=== PATIENT | female | born 1995 | race Hispanic/Latino ===

== ENCOUNTER 2016-09-05 15:28 | Inpatient (IN) | payer OTHER ==
[~2016-09-05] VITALS: Ht 157.5 cm; Wt 74.8 kg
[2016-09-05] MEDS ORDERED: PROAIR HFA8.5 GM INH (16:08)
[2016-09-05] MEDS ORDERED: XANAX2 M1 PO (16:09)
[2016-09-05] MEDS ORDERED: HYDROXYZINE PAM50 M1 PO (16:09)
[2016-09-05] MEDS ORDERED: CIMETIDINE400 M1 PO (16:10)
[2016-09-05] MEDS ORDERED: HYDROCORTISO453.6 G2 TOP (16:10)
--- NOTE | 2016-09-05 16:40 | ED CARDIAC/CP/PALPITATIONS ---
History of Present Illness General Chief Complaint: Chest Pain Stated Complaint: SOB,CHEST PAIN Source: patient Exam Limitations: no limitations Vital Signs & Intake/Output Vital Signs & Intake/Output Vital Signs Date Time Temp Pulse Resp B/P Pulse O2 O2 Flow FiO2 Ox Delivery Rate 09/05 2019 99.5 101 16 115/66 97 Nasal 2.0L Cannula 09/05 2000 99.7 90 20 110/61 97 Nasal 2.0L Cannula 09/05 1754 99.6 100 18 132/72 100 Nasal 2.0L Cannula 09/05 1655 Nasal 2.0L Cannula 09/05 1630 118 18 129/63 97 Room Air 09/05 1540 97.1 120 16 118/74 96 Room Air Allergies Coded Allergies: animal dander (HIVES, MAY TRIGGER ASTHMA 09/05/16) Reconcile Medications Albuterol Sulfate (Proair Hfa) 90 MCG HFA.AER.AD 2 PUF INH Q4-6 PRN PRN ASTHMA (Reported) Alprazolam (Xanax) 2 MG TABLET 1 TAB PO PRN ANXIETY (Reported) Aripiprazole (Abilify) 5 MG TABLET 1 TAB PO DAILY MENTAL HEALTH (Reported) Cimetidine 400 MG TABLET 1 TAB PO DAILY HIVES (Reported) Hydrocortisone 2.5 % CREAM..G. 1 MARY JO TOP AD PRN HIVES (Reported) apply to affected area(s) Hydroxyzine Pamoate 50 MG CAPSULE 1-2 CAP PO TID PRN HIVES (Reported) Triage Note: PT COMPLAINS OF SUDDEN ONSET OF L SIDE CP THAT HAS BEEN CONSTANT AND INCREASING IN INTENSITY THAT STARTED AT 1345, STATES THAT IT IS A CRUSHING FEELING AND THAT SHE CAN'T TAKE A DEEP BREATH, O2 SAT 96 % ON RA.SINUS TACH ON EKG Triage Nurses Notes Reviewed? yes : No Patient currently breastfeeds: No HPI: 20-year-old female with sudden onset of anterior left-sided sternal chest pain which is sharp in nature, started at 1:30 this afternoon. She has history of mild asthma and she smokes occasionally, a few cigarettes every day. Pain is Moderate to severe worse with taking a deep breath and with palpation of the area. Over the last few days she has had cough congestion sputum tactile fever. She denies any calf pain or swelling no leg pain no edema, no DVT risk factors she is not on control, no family history of blood cultures. There has been no treatment thus far. Symptoms are moderate. She feels mildly short of breath. No history of same. (JANICE LONG) Past History Travel History Traveled to [place] past 21 day No Medical History Any Pertinent Medical History? see below for history Neurological: NONE EENT: NONE Cardiovascular: hypertension Respiratory: asthma Gastrointestinal: NONE Hepatic: NONE Renal: NONE Musculoskeletal: NONE Psychiatric: anxiety Blood Disorders: NONE Cancer(s): NONE Surgical History Surgical History: none Psychosocial History What is your primary language Zimbabwean Tobacco Use: Current Daily Use Daily Tobacco Use Amount/Type: => 5 Cigarettes daily ETOH Use: denies use Illicit Drug Use: denies illicit drug use Family History Hx Contributory? No (JANICE LONG) Review of Systems Review of Systems Constitutional: Reports: see HPI. EENTM: Reports: no symptoms. Respiratory: Reports: see HPI. Cardiovascular: Reports: see HPI. GI: Reports: no symptoms. Genitourinary: Reports: no symptoms. Musculoskeletal: Reports: no symptoms. Skin: Reports: no symptoms. Neurological/Psychological: Reports: no symptoms. Hematologic/Endocrine: Reports: no symptoms. Immunologic/Allergic: Reports: no symptoms. All Other Systems: Reviewed and Negative (JANICE LONG) Physical Exam Physical Exam General Appearance: well developed/nourished Cardiovascular: tachycardia Comments: Well-developed well-nourished person in no acute distress HEENT: Normal EENT exam, extraocular motion intact, no nystagmus. Pupils equally round and reactive to light. Nose is atraumatic. External auditory canal and Tympanic membranes clear. Pharynx normal. No swelling or edema. Neck: Supple, no lymphadenopathy, normal range of motion without pain or tenderness Back: Nontender, no CVA tenderness. Full range of motion Cardiovascular: Tachycardic with a regular rhythm Respiratory: Severe point tenderness to the anterior left side of the sternal region. No respiratory distress. Mild tachypnea, mild rhonchi noted bilateral lower lungs Abdomen: Soft, nontender nondistended, no appreciable organomegaly. Normal bowel sounds. No ascites Extremity: No edema, no calf tenderness to palpation, normal and equal pulses. Neuro: Alert oriented x3, motor sensory normal, cranial nerves II through XII grossly intact. Skin: No appreciable rash on exposed skin, skin is warm and dry. Psych: Mood and affect is normal, memory and judgment is normal. Core Measures ACS in differential dx? Yes Severe Sepsis Present: No Septic Shock Present: No (TEQUILA SILVERMAN,JANICE) Progress Differential Diagnosis: AMI, aortic dissection, atrial fibrillation, cholecystitis, CHF/pulm edema, costochondritis, hyperkalemia, hypovolemia, hyperthyroid, hyperventilation, intracranial hemorrhage, musculoskeletal pain, myocarditis, pancreatitis, pericarditis, pneumonia, pneumothorax, PSVT, pulmonary embolism, PUD/GERD, PVCs/PACs, respiratory failure, rib fracture, sepsis, unstable angina, V-fib/V-Tach, WPW syndrome Plan of Care: Orders Procedure Date/time Status Regular Diet 09/06 B Active Saline Lock 09/05 2140 Active Misc Message 09/05 2140 Active ED Holding Orders 09/05 2140 Active Vital Signs 09/05 2140 Active Activity/Ambulation 09/05 2140 Active Code Status 09/05 2140 Active Admit to inpatient 09/05 2139 Active Patient Data 09/05 213 Active Intake & Output 09/05 1657 Active Saline Lock 09/05 1633 Active Telemetry/Sports Broadcaster 09/05 1633 Active TROPONIN LEVEL 09/05 1633 Complete HUMAN BETA HCG SCREEN 09/05 1633 Complete COMPREHENSIVE METABOLIC PANEL 09/05 1633 Complete CBC WITHOUT DIFFERENTIAL 09/05 1633 Complete B-TYPE NATRIURETIC PEP (BNP) 09/05 1633 Complete EKG 09/05 1530 Active Laboratory Tests 09/05/16 1725: Anion Gap 14, Estimated GFR > 60, BUN/Creatinine Ratio 11.3, Glucose 96, Calcium 9.5, Total Bilirubin 0.6, AST 21, ALT 30, Alkaline Phosphatase 90, Troponin I < 0.01, Lwr-Z-Nkojfqzcear Pept 30.6, Total Protein 7.6, Albumin 4.3, Globulin 3.3, Albumin/Globulin Ratio 1.3, Total Beta HCG NEGATIVE, CBC w Diff NO MAN DIFF REQ, RBC 4.28, MCV 90.9, MCH 31.0, RDW 13.4, MPV 9.3, Gran % 86.9 H, Lymphocytes % 6.1 L, Monocytes % 5.7, Eosinophils % 1.0, Basophils % 0.3, Absolute Granulocytes 11.8 H, Absolute Lymphocytes 0.8 L, Absolute Monocytes 0.8 H, Absolute Eosinophils 0.1, Absolute Basophils 0, PUBS MCHC 34.1 Diagnostic Imaging: Viewed by Me: Radiology Read, CT Scan. Discussed w/RAD: Radiology Read, CT Scan. Radiology Impression: PATIENT: CLIFF DYSON PRESENT AGE: 20 PATIENT ACCOUNT NO: [id number] : 93 LOCATION: [facility] ORDERING PHYSICIAN: JANICE SILVERMAN SERVICE DATE: 09/05/16 EXAM TYPE: CAT - CT CHEST WO IV CONTRAST EXAMINATION: CT CHEST WITHOUT CONTRAST CLINICAL INFORMATION: Pneumomediastinum. Concern for esophageal leak. COMPARISON: None. TECHNIQUE: Multidetector volumetric CT imaging of the chest was done. Axial MIP volume rendering provided. Sagittal and coronal reformatted images were obtained. Oral contrast given. DLP: 185.4 mGy-cm. FINDINGS: LUNGS: Lungs are clear. MEDIASTINUM: There is pneumomediastinum extending into the neck. There is pneumopericardium. There is subcutaneous emphysema in the axillary regions bilateral. Contrast within the esophagus and the stomach. No leak of the esophagus. PLEURA: Small bilateral apical pneumothorax. There is no pleural effusion. No oral contrast leaking into the pleural space. AXILLA: No lymphadenopathy. UPPER ABDOMEN: Unremarkable. OSSEOUS STRUCTURES: Unremarkable. IMPRESSION: 1. Pneumomediastinum. Pneumopericardium. Small bilateral apical pneumothorax. Subcutaneous air in the axillary areas. 2. No esophageal leak. DICTATED BY: WILFRIDO STINSON MD DATE/TIME DICTATED:09/05/162006 CONCRETE BUCKET UNLOADER :ANNIE DATE/TIME TRANSCRIBED:09/05/16 / CXR Impression: PATIENT: CLIFF DYSON PRESENT AGE: 20 PATIENT ACCOUNT NO: [id number] : 93 LOCATION: [facility] ORDERING PHYSICIAN: JANICE SILVERMAN SERVICE DATE: 09/05/16163 EXAM TYPE: RAD - XRY-CHEST XRAY, PA AND LATERAL EXAMINATION: XR CHEST CLINICAL INFORMATION: Chest pain and cough. COMPARISON: None. TECHNIQUE: PA and lateral views of the chest were obtained. FINDINGS: There is pneumomediastinum and a pneumopericardium. Air tracks into the soft tissues of the neck. There is subcutaneous air in the right and left axillary regions. There is a small right apical pneumothorax. There is a small left apical pneumothorax. No infiltrate. No pleural effusion. No pulmonary vascular congestion. Heart size is normal. Cardiac and mediastinal contours are normal. IMPRESSION: Pneumomediastinum. Pneumopericardium. Small bilateral pneumothorax. This critical result was discussed with on , 5:15 PM and it was ascertained that the content and urgency of the report was understood at the time of direct communication. DICTATED BY: WILFRIDO STINSON MD DATE/TIME DICTATED:09/05/161710 CONCRETE BUCKET UNLOADER:ANNIE DATE/TIME TRANSCRIBED:09/05/161710 Initial ED EKG: sinus tachycardia at 120 bpm, abnormal T waves noted in lead 3, aVF, V2 V3 and V4 and V5 no ST segment depression Rhythm Strip: sinus tachycardia Comments: IV Toradol ordered for pain, will check chest x-ray and labs. Patient tachycardic, considered pulmonary embolism. Placed on supplemental oxygen the nasal cannula 2 L Discussed with radiology regarding chest x-ray, discussed with Dr. cabello who reviewed the x-ray as well. Patient reevaluated, she has mild tenderness of the neck without any significant crepitus noted on exam. She is comfortable. She is placed on supplemental oxygen, given IV fluids. Call placed to the thoracic surgeon clinical transformation specialist at 1730. Discussed with Dr. Antonio, recommend CT scan of the chest with oral contrast to evaluate for esophageal leak. CT scan reveals no leak however there is a bilateral small apical pneumothorax, pneumomediastinum again, discussed with Dr. Antonio, no surgical intervention required at this time. Patient treated with IV morphine for pain Discussed with Dr. Rabago who recommends high flow oxygen 100% nonrebreather, admitted overnight to the hospitalist service, repeat chest x-ray admitted night and then again at 6 AM and he will evaluate the patient in the morning and recommends that the admitting team call him immediately if there is any concerns of decompensation. Discussed with Dr. Nobles who agrees with plan. Patient given Percocet for pain (JANICE LONG) Departure Departure Disposition: STILL A PATIENT Condition: Stable Clinical Impression Primary Impression: Pneumomediastinum Secondary Impressions: Abnormal EKG Pneumopericardium Subcutaneous air Qualifiers: Encounter type: initial encounter Qualified Code: T79.7XXA - Traumatic subcutaneous emphysema, initial encounter Tachycardia Referrals: PATIENT HAS NO PRIMARY CARE DR (PCP/Family) Departure Forms: Customer Survey General Discharge Information Admission Note Spoke With: JAKY ALLEN MD Documentation of Exam: Documentation of any treatments & extenuating circumstances including Concerns Regarding Discharge (functional status, medication knowledge or non-compliance, living conditions, etc.) that warrant an admission rather than observation: Patient with a spontaneous pneumoperitoneum, pneumopericardium with air tracking into the neck and subcutaneous tissues of the chest cavity. She requires admission, high flow oxygen , 100 percent overnight on a nonrebreather, repeat serial chest x-rays at midnight and again at 6 AM and evaluation by kennel keeper, telemetry monitoring required. Monitoring her vital signs, oxygen saturation and symptoms and evaluate for worsening pneumothoraces (JANICE LONG) PA/SENIOR APPLICATIONS ANALYST Co-Sign Statement Statement: ED Attending supervision documentation- [X] I saw and evaluated the patient. I have also reviewed all the pertinent lab results and diagnostic results. I agree with the findings and the plan of care as documented in the PA's/SENIOR APPLICATIONS ANALYST's documentation. [X] I have reviewed the ED Record and agree with the PA's/SENIOR APPLICATIONS ANALYST's documentation. [] Additions or exceptions (if any) to the PAs/SENIOR APPLICATIONS ANALYST's note and plan are summarized below: [Patient to be admitted for prior pneumomediastinum. Thoracic surgery has been constant.] (MOIZ KIRAN,KING Cortes) Critical Care Note Critical Care Note Critical Care Time: 30-74 min (35) (JANICE LONG)
--- NOTE | 2016-09-05 17:20 | RADIOLOGY REPORT ---
EXAMINATION: XR CHEST CLINICAL INFORMATION: Chest pain and cough. COMPARISON: None. TECHNIQUE: PA and lateral views of the chest were obtained. FINDINGS: There is pneumomediastinum and a pneumopericardium. Air tracks into the soft tissues of the neck. There is subcutaneous air in the right and left axillary regions. There is a small right apical pneumothorax. There is a small left apical pneumothorax. No infiltrate. No pleural effusion. No pulmonary vascular congestion. Heart size is normal. Cardiac and mediastinal contours are normal. IMPRESSION: Pneumomediastinum. Pneumopericardium. Small bilateral pneumothorax. This critical result was discussed with on 09/05/2016, 5:15 PM and it was ascertained that the content and urgency of the report was understood at the time of direct communication.
[2016-09-05 17:41] LABS: ABSOLUTE BASOPHIL COUNT 0 /CUMM (0.0-0.2); ABSOLUTE EOSINOPHIL COUNT 0.1 /CUMM (0.0-0.7); ABSOLUTE GRANULOCYTE CT 11.8 /CUMM (1.4-6.5); ABSOLUTE LYMPH COUNT 0.8 /CUMM (1.2-3.4); ABSOLUTE MONOCYTE COUNT 0.8 /CUMM (0.10-0.60); BASOPHIL % 0.3 % (0.0-2.0); GRANULOCYTE % 86.9 % (42.2-75.2); HEMATOCRIT 38.9 % (37-47); MEAN CORPUSCULAR HGB CONC 34.1 G/DL (33.0-37.0); MEAN CORPUSCULAR VOLUME 90.9 FL (81.0-99.0); MEAN PLATELET VOLUME 9.3 FL (7.4-10.4); PLATELET COUNT 223 /CUMM (130-400); RBC DISTRIBUTION WIDTH 13.4 % (11.5-14.5); RED BLOOD CELL CT 4.28 /CUMM (4.20-5.40); WHITE BLOOD CELL COUNT 13.6 /CUMM (4.8-10.8)
--- NOTE | 2016-09-05 20:16 | CT SCAN REPORT ---
EXAMINATION: CT CHEST WITHOUT CONTRAST CLINICAL INFORMATION: Pneumomediastinum. Concern for esophageal leak. COMPARISON: None. TECHNIQUE: Multidetector volumetric CT imaging of the chest was done. Axial MIP volume rendering provided. Sagittal and coronal reformatted images were obtained. Oral contrast given. DLP: 185.4 mGy-cm. FINDINGS: LUNGS: Lungs are clear. MEDIASTINUM: There is pneumomediastinum extending into the neck. There is pneumopericardium. There is subcutaneous emphysema in the axillary regions bilateral. Contrast within the esophagus and the stomach. No leak of the esophagus. PLEURA: Small bilateral apical pneumothorax. There is no pleural effusion. No oral contrast leaking into the pleural space. AXILLA: No lymphadenopathy. UPPER ABDOMEN: Unremarkable. OSSEOUS STRUCTURES: Unremarkable. IMPRESSION: 1. Pneumomediastinum. Pneumopericardium. Small bilateral apical pneumothorax. Subcutaneous air in the axillary areas. 2. No esophageal leak.
--- NOTE | 2016-09-05 21:28 | Cons- Thoracic Surgery ---
MIGUEL CORONA 09/05/162113: General Information and HPI Consulting Request Date of Consult: 09/05/16 Requested By: Mann Mahoney PA-C Reason for Consult: pneumomediastinum Source of Information: patient Exam Limitations: no limitations History of Present Illness: Patient is a 20yo F whom presented to the ED with onset of chest pain. Per patient she was at work in her normal state of health at approximately 13:30 when she had sudden pain in her chest as well as what she described as her normal asthma symptoms. After using her albuterol inhaler her breathing improved but her chest pain persisted at which point she decided to come to the ED. Patient states that she was sitting at a desk and not exerting herself. She denies any trauma or blunt force to the chest. She denies recent fever or illnesses though she had an episode of a hot flash yesterday which was short in duration and resolved. At this time patient states that she continues to have some discomfort in her chest and around her neck but breathing is improved. No further c/o. Allergies/Medications Allergies: Coded Allergies: animal dander (HIVES, MAY TRIGGER ASTHMA 09/05/16) Home Med List: Albuterol Sulfate (Proair Hfa) 90 MCG HFA.AER.AD 2 PUF INH Q4-6 PRN PRN ASTHMA (Reported) Alprazolam (Xanax) 2 MG TABLET 1 TAB PO PRN ANXIETY (Reported) Aripiprazole (Abilify) 5 MG TABLET 1 TAB PO DAILY MENTAL HEALTH (Reported) Cimetidine 400 MG TABLET 1 TAB PO DAILY HIVES (Reported) Hydrocortisone 2.5 % CREAM..G. 1 MARY JO TOP AD PRN HIVES (Reported) apply to affected area(s) Hydroxyzine Pamoate 50 MG CAPSULE 1-2 CAP PO TID PRN HIVES (Reported) Current Medications: Current Medications Sig/Holly Start time Last Medication Dose Route Stop Time Status Admin Ketorolac 0 .STK-MED ONE 09/05 1654 DC Tromethamine .ROUTE Ketorolac 30 MG ONCE ONE 09/05 1645 DC 09/05 Tromethamine IV 09/056 1735 Morphine Sulfate 0 .STK-MED ONE 09/05 1918 DC .ROUTE Morphine Sulfate 2 MG ONCE ONE 09/05 1914 DC 09/05 IV 01/03 1916 1921 Oxycodone/ 0 .STK-MED ONE 09/05 2021 DC Acetaminophen PO Oxycodone/ 1 TAB ONCE ONE 09/05 2014 DC 09/05 Acetaminophen PO 09/05 Sodium Chloride 1,000 ML BOLUS ONE 09/05 1645 DC 09/05 IV 09/05 1744 1735 Past History Medical History Neurological: NONE EENT: NONE Cardiovascular: hypertension Respiratory: asthma Gastrointestinal: NONE Hepatic: NONE Renal: NONE Musculoskeletal: NONE Psychiatric: anxiety Blood Disorders: NONE Cancer(s): NONE Surgical History Pertinent Surgical History: 1 Psychosocial History ETOH Use: denies use Illicit Drug Use: denies illicit drug use Review of Systems Review of Systems Constitutional: Denies: chills, fever, malaise. EENTM: Denies: blurred vision, visual changes. Cardiovascular: Reports: see HPI. Denies: palpitations. Respiratory: Reports: see HPI. GI: Denies: abdominal pain, constipation, diarrhea. Genitourinary: Denies: dysuria, frequency. Musculoskeletal: Denies: back pain, joint pain, muscle pain. Skin: Denies: change in skin color. All Other Systems: Reviewed and Negative Exam & Diagnostic Data Vital Signs and I&O Vital Signs Date Time Temp Pulse Resp B/P Pulse O2 O2 Flow FiO2 Ox Delivery Rate 09/05 2019 99.5 101 16 115/66 97 Nasal 2.0L Cannula 09/05 2000 99.7 90 20 110/61 97 Nasal 2.0L Cannula 09/05 1754 99.6 100 18 132/72 100 Nasal 2.0L Cannula 09/05 1655 Nasal 2.0L Cannula 09/05 1630 118 18 129/63 97 Room Air 09/05 1540 97.1 120 16 118/74 96 Room Air Intake & Output 09/05 1600 09/05 0800 09/05 0000 09/04 1600 09/04 0800 09/04 0000 Intake Total Output Total Balance Patient 165 lb Weight Physical Exam General Appearance: well developed/nourished, no apparent distress, alert, awake Head: atraumatic, normal appearance Eyes: Bilateral: normal appearance, EOMI. Ears, Nose, Throat: hearing grossly normal, moist mucus membranes Neck: full range of motion, trachea mid line, no midline tenderness, tenderness and crepitus b/l lateral sides of neck Respiratory: normal breath sounds, no respiratory distress Cardiovascular: regular rate/rhythm, normal peripheral pulses Peripheral Pulses: 2+ radial (R), 2+ radial (L) Extremities: normal inspection Skin: intact, normal color, warm/dry Last 24 Hours of Labs: Laboratory Tests 09/05 1725 Chemistry Sodium (137 - 145 mmol/L) 138 Potassium (3.5 - 5.1 mmol/L) 4.0 Chloride (98 - 107 mmol/L) 99 Carbon Dioxide (22 - 30 mmol/L) 25 Anion Gap (5 - 16) 14 BUN (7 - 17 mg/dL) 9 Creatinine (0.5 - 1.0 mg/dL) 0.8 Estimated GFR (>60 ml/min) > 60 BUN/Creatinine Ratio (7 - 25 %) 11.3 Glucose (65 - 99 mg/dL) 96 Calcium (8.4 - 10.2 mg/dL) 9.5 Total Bilirubin (0.2 - 1.3 mg/dL) 0.6 AST (14 - 36 U/L) 21 ALT (9 - 52 U/L) 30 Alkaline Phosphatase (<127 U/L) 90 Troponin I (< 0.11 ng/ml) < 0.01 [id number] Pept (<125 pg/mL) 30.6 Total Protein (6.3 - 8.2 g/dL) 7.6 Albumin (3.5 - 5.0 g/dL) 4.3 Globulin (1.9 - 4.2 gm/dL) 3.3 Albumin/Globulin Ratio (1.1 - 2.2 %) 1.3 Total Beta HCG (NEGATIVE) NEGATIVE Hematology CBC w Diff NO MAN DIFF REQ WBC (4.8 - 10.8 /CUMM) 13.6 H RBC (4.20 - 5.40 /CUMM) 4.28 Hgb (12.0 - 16.0 G/DL) 13.3 Hct (37 - 47 %) 38.9 MCV (81.0 - 99.0 FL) 90.9 MCH (27.0 - 31.0 PG) 31.0 RDW (11.5 - 14.5 %) 13.4 Plt Count (130 - 400 /CUMM) 223 MPV (7.4 - 10.4 FL) 9.3 Gran % (42.2 - 75.2 %) 86.9 H Lymphocytes % (20.5 - 51.1 %) 6.1 L Monocytes % (1.7 - 9.3 %) 5.7 Eosinophils % (0 - 5 %) 1.0 Basophils % (0.0 - 2.0 %) 0.3 Absolute Granulocytes (1.4 - 6.5 /CUMM) 11.8 H Absolute Lymphocytes (1.2 - 3.4 /CUMM) 0.8 L Absolute Monocytes (0.10 - 0.60 /CUMM) 0.8 H Absolute Eosinophils (0.0 - 0.7 /CUMM) 0.1 Absolute Basophils (0.0 - 0.2 /CUMM) 0 PUBS MCHC (33.0 - 37.0 G/DL) 34.1 Imaging Results: EXAM TYPE: RAD - XRY-CHEST XRAY, PA AND LATERAL EXAMINATION: XR CHEST CLINICAL INFORMATION: Chest pain and cough. COMPARISON: None. TECHNIQUE: PA and lateral views of the chest were obtained. FINDINGS: There is pneumomediastinum and a pneumopericardium. Air tracks into the soft tissues of the neck. There is subcutaneous air in the right and left axillary regions. There is a small right apical pneumothorax. There is a small left apical pneumothorax. No infiltrate. No pleural effusion. No pulmonary vascular congestion. Heart size is normal. Cardiac and mediastinal contours are normal. IMPRESSION: Pneumomediastinum. Pneumopericardium. Small bilateral pneumothorax. This critical result was discussed with on 09/05/2016, 5:15 PM and it was ascertained that the content and urgency of the report was understood at the time of direct communication. Assessment/Plan Assessment/Plan 20yo F with spontaneous pneumomediastinum and pneumopericardium. Patient is stable at this time without evidence of pneumothoraces. No cardiothoracic surgical intervention at this time. Recommend monitoring. OK to admit to medicine. Pain control. If patient's condition changes or if there are new findings please contact CT surgery. This was discussed with Dr. Antonio. Problem List: 1. Pneumomediastinum 2. Pneumopericardium Consult Acknowledgment - Thank you for your consult request. LUNA ANTONIO MD 09/06/16 0737: Assessment/Plan Consult Acknowledgment - Thank you for your consult request. Attending MD Review Statement Attending Statement Attending MD Statement: examined this patient, discuss w/resident/PA/MACHINE TOOL DRESSER, agreed w/resident/PA/MACHINE TOOL DRESSER Attending Assessment/Plan: No evidence of visceral injury, suspect closed glottic rupture into soft tissues. No intervention necessary. Needs pulmonary evaluation, spoke with Dr. Rabago
--- NOTE | 2016-09-05 21:52 | History & Physical ---
[facility] 09/05/16 2151: General Information and HPI Source of Information: patient Exam Limitations: no limitations History of Present Illness: This is a a 20 yo lady with a past medical history of for asthma, chronic back injury, presented to the ED with a chief complaint sudden onset left-sided chest pain and worsening cough and sudden onset left-sided chest pain. Patient states that for the past 3 days, she has been experiencing a productive cough with chest congestion, which she attributes as part of her for asthma condition. However, patient reports that today around 1 PM while sitting at her work office, she experience sudden left-sided chest pain. Patient described the pain as sharp, rating it a 10 out of 10, and worsened by inspiration,and not affected by exertion. Patient decided to come to the ER after realizing that albuterol MDI was not given any relief from the chest pain. Of note, patient reports being asthmatic since she was 9 years old and was prescribed Flovent but she never used it. Even though she reports no asthma flareups or any hospitalization, she does acknowledge using albuterol inhaler more than 10 times this week. Patient does deny any radiating chest pain, diaphoresis, palpitations, , chills/ fever, recent upper respiratory infection, sick contacts, recent chest trauma, vomiting/retching, forced valsava movements, or any illicit drug use. Allergies/Medications Allergies: Coded Allergies: animal dander (HIVES, MAY TRIGGER ASTHMA 09/05/16) Home Med list Albuterol Sulfate (Proair Hfa) 90 MCG HFA.AER.AD 2 PUF INH Q4-6 PRN PRN ASTHMA (Reported) Alprazolam (Xanax) 2 MG TABLET 1 TAB PO PRN ANXIETY (Reported) Aripiprazole (Abilify) 5 MG TABLET 1 TAB PO DAILY MENTAL HEALTH (Reported) Cimetidine 400 MG TABLET 1 TAB PO DAILY HIVES (Reported) Hydrocortisone 2.5 % CREAM..G. 1 MARY JO TOP AD PRN HIVES (Reported) apply to affected area(s) Hydroxyzine Pamoate 50 MG CAPSULE 1-2 CAP PO TID PRN HIVES (Reported) Past History Travel History Traveled to [place] past 21 day No Medical History Neurological: NONE EENT: NONE Cardiovascular: hypertension Respiratory: asthma Gastrointestinal: NONE Hepatic: NONE Renal: NONE Musculoskeletal: NONE Psychiatric: anxiety Blood Disorders: NONE Cancer(s): NONE Surgical History Surgical History: none Past Family/Social History Psychosocial History ETOH Use: denies use Illicit Drug Use: denies illicit drug use Review of Systems Review of Systems Constitutional: Denies: chills, diaphoresis, fever. EENTM: Denies: blurred vision, double vision, visual changes. Cardiovascular: Reports: chest pain. Denies: orthopena, palpitations, peripheral edema, syncope. Respiratory: Reports: cough, short of breath. GI: Denies: abdominal pain, bloating, vomiting. Genitourinary: Denies: see HPI, dysuria, frequency, hematuria. Musculoskeletal: Denies: joint pain, joint swelling, muscle pain. Skin: Denies: change in hair/nails, dryness, erythema, jaundice, lesions. Neurological/Psychological: Denies: ataxia, cognitive dysfunction, confusion, depressed. Hematologic/Endocrine: Reports: no symptoms. Exam & Diagnostic Data Last 24 Hrs of Vital Signs/I&O Vital Signs Date Time Temp Pulse Resp B/P Pulse O2 O2 Flow FiO2 Ox Delivery Rate 09/06 0549 96.9 88 16 116/64 98 Room Air 09/06 0053 Non ReBreather 09/05 2326 99 Non 100% ReBreather 09/05 2228 99.2 92 28 116/66 100 Non ReBreather 09/05 2020 99.5 101 16 115/66 97 Nasal 2.0L Cannula 09/05 2001 99.7 90 20 110/61 97 Nasal 2.0L Cannula 09/05 1754 99.6 100 18 132/72 100 Nasal 2.0L Cannula 09/05 1655 Nasal 2.0L Cannula 09/05 1630 118 18 129/63 97 Room Air 09/05 1540 97.1 120 16 118/74 96 Room Air Intake & Output 09/06 0800 09/06 0000 09/05 1600 Intake Total 11 1000 Output Total Balance 11 1000 Intake, IV 11 1000 Patient 74.843 kg 74.843 kg Weight Physical Exam General Appearance Alert, Oriented X3, Cooperative, Mild Distress Skin No Rashes, No Breakdown, No Significant Lesion HEENT Atraumatic, PERRLA, EOMI, Mucous Membr. moist/pink Neck Supple, No JVD, No thryomegaly, +2 Carotid Pulse wo Bruit, No LAD Lymphatic Cervical nl Cardiovascular Regular Rate, Normal S1, Normal S2, No Murmurs, Gallops, Rubs Lungs decreased breath sounds bilaterally, however this exam is limited by patient inability to take full breaths Abdomen Normal Bowel Sounds, Soft, No Tenderness, No Hepatospenomegaly Neurological Normal Gait, Normal Speech, Strength at 5/5 X4 Ext, Normal Tone Extremities No Clubbing, No Cyanosis, No Edema, Normal Pulses, No Tenderness/ Swelling Vascular Normal Pulses, Pulses Symmetrical Last 24 Hrs of Labs/Khang: Laboratory Tests 09/06/16 0510: Anion Gap 12, Estimated GFR > 60, BUN/Creatinine Ratio 14.3, CBC w Diff NO MAN DIFF REQ, RBC 4.05 L, MCV 90.4, MCH 30.9, RDW 13.7, MPV 9.4, Gran % 68.6, Lymphocytes % 17.9 L, Monocytes % 8.1, Eosinophils % 5.2 H, Basophils % 0.2, Absolute Granulocytes 6.6 H, Absolute Lymphocytes 1.7, Absolute Monocytes 0.8 H, Absolute Eosinophils 0.5, Absolute Basophils 0, PUBS MCHC 34.1 09/05/16 1725: Anion Gap 14, Estimated GFR > 60, BUN/Creatinine Ratio 11.3, Glucose 96, Calcium 9.5, Total Bilirubin 0.6, AST 21, ALT 30, Alkaline Phosphatase 90, Troponin I < 0.01, Dpf-I-Lcukwvtaldu Pept 30.6, Total Protein 7.6, Albumin 4.3, Globulin 3.3, Albumin/Globulin Ratio 1.3, Total Beta HCG NEGATIVE, CBC w Diff NO MAN DIFF REQ, RBC 4.28, MCV 90.9, MCH 31.0, RDW 13.4, MPV 9.3, Gran % 86.9 H, Lymphocytes % 6.1 L, Monocytes % 5.7, Eosinophils % 1.0, Basophils % 0.3, Absolute Granulocytes 11.8 H, Absolute Lymphocytes 0.8 L, Absolute Monocytes 0.8 H, Absolute Eosinophils 0.1, Absolute Basophils 0, PUBS MCHC 34.1 Diagnostic Data CXR Results EXAM TYPE: RAD - XRY-CHEST XRAY, PA AND LATERAL EXAMINATION: XR CHEST CLINICAL INFORMATION: Chest pain and cough. COMPARISON: None. TECHNIQUE: PA and lateral views of the chest were obtained. FINDINGS: There is pneumomediastinum and a pneumopericardium. Air tracks into the soft tissues of the neck. There is subcutaneous air in the right and left axillary regions. There is a small right apical pneumothorax. There is a small left apical pneumothorax. No infiltrate. No pleural effusion. No pulmonary vascular congestion. Heart size is normal. Cardiac and mediastinal contours are normal. IMPRESSION: Pneumomediastinum. Pneumopericardium. Small bilateral pneumothorax. This critical result was discussed with on 09/05/2016, 5:15 PM and it was ascertained that the content and urgency of the report was understood at the time of direct communication. DICTATED BY: WILFRIDO STINSON MD DATE/TIME DICTATED:09/05/161710 Other Results SERVICE DATE: 09/05/16 EXAM TYPE: CAT - CT CHEST WO IV CONTRAST EXAMINATION: CT CHEST WITHOUT CONTRAST CLINICAL INFORMATION: Pneumomediastinum. Concern for esophageal leak. COMPARISON: None. TECHNIQUE: Multidetector volumetric CT imaging of the chest was done. Axial MIP volume rendering provided. Sagittal and coronal reformatted images were obtained. Oral contrast given. DLP: 185.4 mGy-cm. FINDINGS: LUNGS: Lungs are clear. MEDIASTINUM: There is pneumomediastinum extending into the neck. There is pneumopericardium. There is subcutaneous emphysema in the axillary regions bilateral. Contrast within the esophagus and the stomach. No leak of the esophagus. PLEURA: Small bilateral apical pneumothorax. There is no pleural effusion. No oral contrast leaking into the pleural space. AXILLA: No lymphadenopathy. UPPER ABDOMEN: Unremarkable. OSSEOUS STRUCTURES: Unremarkable. IMPRESSION: 1. Pneumomediastinum. Pneumopericardium. Small bilateral apical pneumothorax. Subcutaneous air in the axillary areas. 2. No esophageal leak. DICTATED BY: WILFRIDO STINSON MD Assessment/Plan Assessment: This is a 21-year-old female with past medical history of asthma which seems to be uncontrolled recently, presents with pleuritic chest pain in the setting of radiological finding of pneumomediastinum and pneumopericardium. Assessment and plan #Chest pain Patient has radiological finding of pneumomediastinum and pneumopericardium. Most Likely etiology is her asthma which seems to have been exacerbated in the past week. It is possible that patient had episodes of forceful coughing that lead to the development of spontaneous pneumomediastinum. Patient is hemodynamically stable and only in mild distress, and does not warrant any surgical intervention per thoracic surgery. Regarding, the patient's pneumopericardium it is possibly secondary from the pneumomediastinum. Plan * Will admit patient to telemetry * Will keep patinet on 100% nonrebreather per pulmonology recommendation ( appreciated) * Repeat chest x-ray 6 am * Cardiology was consulted to see if patient wasa candidate for echocardiogram #Asthma exacerbation Patient's symptoms of cough and reported increased use of Albuterol MDI (10/WEEK ) consistent with uncontrolled asthma. Patient will benefit from addition of [id number] corticosteroid inhaler in addition to her rescue inhaler. Plan * TRC evaluation * Continue albuterol as needed * Consider moderate corticosteroid dose inhaler before discharge #Leukocytosis Patient is afebrile, most likely this is compared to inflammatory process rather than infectious etiology. Plan Will trend CBC As Ranked By This Provider Problem List: 1. Pneumomediastinum 2. Pneumopericardium Core Measures/Miscellaneous Acute Coronary Syndrome ACS Diagnosis: No Cerebrovascular Accident CVA/TIA Diagnosis: No Congestive Heart Failure CHF Diagnosis: No Venous Thromboembolism VTE Risk Factors: Acute medical illness VTE Prophylaxis Ordered Inpt: Pharm- Lovenox No Mech VTE prophylaxis d/t: No contraindications No VTE Pharm Prophylaxis d/t: No contraindications VTE Diagnosis: No VTE Type: NONE VTE Confirmed by (Test): NONE Severe Sepsis Severe Sepsis Present: No Septic Shock Septic Shock Present: No Miscellaneous Documentation Attending Case Discussed With: JAKY ALLEN MD Primary Care Physician: PATIENT HAS NO PRIMARY CARE DR Patient sees these Specialists none Level of Patient Care: Telemetry DANAY ALVARENGA 09/05/16 0031: Resident Review Statement Resident Statement: examined this patient, discussed with technical intern, agreed with technical intern Other Findings: Patient is a 20-year-old woman with a past medical history significant for asthma, chronic back injury, presented to the ED with a chief complaints of worsening cough and sudden onset left-sided chest pain. Patient mentioned that she has been having cough with congestion/and phlegm for the last 2-3 days. She has been using her albuterol inhaler at home. Today she was coughing a lot, all of a sudden she started having left-sided chest pain at around 1:30 PM this afternoon, chest pain was sharp, 10/10 in severity without any radiations, aggravated with deep breaths and coughing. She thought that she might be having as asthma exacerbation , she used her inhaler without much improvement. Her symptoms gotten worse to the point that she could unable to breathe and came to the ER for further assessment. Of the note patient has a history of asthma since the age of 9, she has never seen a chief internal auditor/has not done for rate function tests. Her last asthma exacerbation was about 6 months ago. Patient denies any palpitations. No nausea vomiting abdominal discomfort. Vitals on admission temperature 97.1, pulse 120, respiratory 16, blood pressure 118/74 on room. On examination: General Appearance:alert oriented 3 , not in acute distress. Skin: Grossly normal HEENT: PEERLA Neck: Supple, No JVD Cardiovascular: Regular rate and rhythm without any murmurs. Lungs: Disease respirations in the lower lung bases without any wheezes or rhonchi. Abdomen: Normal Bowel Sounds without any tenderness. Neurological: Normal Speech, Strength at 5/5 X4 Ext, Cranial Nerves 3-12 NL, Reflexes 2+ Extremities: Normal without any edema. Vascular: Normal Pulses. Pertinent labs on admission Leukocytosis :13.6, normal BeP, normal troponin CT chest showed Pneumomediastinum. Pneumopericardium. Small bilateral apical pneumothorax. Subcutaneous air in the axillary areas.. No esophageal leak. Assessment: This is a 20-year-old young female with a history of asthma and chronic back pain presented to ED with a chief complaints of worsening cough and sudden onset left-sided chest pain CT chest revealed evidence of Pneumomediastinum. Pneumopericardium. Small bilateral apical pneumothorax. Plan: Spontaneous Pneumomediastinum,Pneumopericardium. Small bilateral apical pneumothorax: * We will admit the patient to telemetry floor * Thoracic surgery consult has been obtained as per recommendationssurgical interventions for now. * Pulmonology consult with Dr. Rabago has been obtained as per recommendations Will continued to manage patient conservatively * Continue with 100% oxygen through nonrebreather mask * Moderate to severe pain controlled with IV Toradol and Percocet, if pain not controlled will consider starting the patient on IV Dilaudid. * Repeat chest x-ray in the morning.If patient's condition changes or if there are new findings we will contact thoracic surgery . * Continue with full liquid diet. * Check Utox(cocaine can cause spontaneous pneumothorax) * Watch for any hemodynamically yesterday overnight * Talked to Dr. Strauss over the phone, no need of urgent echocardiogram at this time, he will see the patient in the morning. 2. History of asthma * Continue as needed albuterol inhaler. * TRCS and nebs. 3. Reactive Leucocytosis : * No evidence of infection. 4. Mild to moderate severe pain controlled with IV Toradol and Percocet for now. 5. DVT prophylaxis with subcutaneous Lovenox 6. Patient is full code JAKY ALLEN 09/06/16 0237: Attending MD Review Statement Attending Statement Attending MD Statement: examined this patient, discuss w/resident/PA/PRECISION INSTRUMENT AND TOOL MAKER, agreed w/resident/PA/PRECISION INSTRUMENT AND TOOL MAKER, reviewed EMR data (avail), reviewed images, amended to note Attending Assessment/Plan: Cc acute chest pain PMHx: Asthma Patient started to notice worsening asthma symptoms since last 2-3 days with increasing shortness of breath, persistent cough. Patient was using her rescue inhaler but on the day of admission patient notice sharp left-sided chest pain, was not relieving after rescue inhaler, breathing was getting more troublesome. When chest pain was progressing she came to ER for evaluation. no vomiting,, fever, chills. Vitals T max 99.7, pulse at presentation 120 decreased to 92, respiration ranging from 18-28, blood pressure and O2 saturations stable. On exam a O 3, anxious, puffy face and neck, no obvious crepitus palpated, RS: Clear entry bilaterally. CVS: S1-S2, RRR no JVD. Abdomen: Soft, NT, ND, bowel sounds present. No focal neurological deficit, no dependent edema. Labs WBC 13.6 with granulocytes 86%, otherwise CBC, BMP, LFT within normal range. Chest x-ray: Pneumomediastinum. Pneumopericardium. Small bilateral pneumothorax. Chest CT with by mouth contrast:. Pneumomediastinum. Pneumopericardium. Small bilateral apical pneumothorax. Subcutaneous air in the axillary areas. No esophageal leak. A and P #1 spontaneous pneumomediastinum, pneumopericardium, pneumothorax: Probably secondary to asthma exacerbation, causing constant cough. CV surgery is been informed in ER who suggested conservative management. Dr. Rabago was informed in ER, who suggested 100% NRB, repeated chest x-ray. Admit patient to telemetry, continue 100% NRB, repeated chest x-ray, Mucinex by mouth, full liquid diet, bronchodilator nebulizations treatment for asthma, hold IV steroids for now. Check U tox. #2 leukocytosis appears to be reactive, watch for fever spikes. No antibiotics for now. #3 DVT prophylaxis Alps, adequate pain control. #4 asthma: Patient's asthma is not well controlled, symptomatic and use of rescue inhaler 10 times a week. Currently using rescue inhalers only May need to step up treatment.
--- NOTE | 2016-09-06 02:39 | Admission Certification ---
Admission Certification Certification Statement - As attending physician, I certify that at the time of - admission, based on clinical presentation, severity of - symptoms, need for further diagnostic testing and - therapeutic interventions, and risk of adverse outcomes - without in-hospital treatment, in my clinical assessment, - this patient requires an acute hospital stay for a minimum - of two nights or longer. I have also considered psychsocial - factors such as support system, advanced age, financial - issues, cognitive issues, and failed out-patient treatments, - past re-admission history, safety of patient, and lack of - compliance as applicable. Specific rationale supporting this admission is: Spontaneous pneumomediastinum, pneumopericardium, pneumothorax.
[2016-09-06 05:40] LABS: ABSOLUTE BASOPHIL COUNT 0 /CUMM (0.0-0.2); ABSOLUTE EOSINOPHIL COUNT 0.5 /CUMM (0.0-0.7); ABSOLUTE GRANULOCYTE CT 6.6 /CUMM (1.4-6.5); ABSOLUTE LYMPH COUNT 1.7 /CUMM (1.2-3.4); ABSOLUTE MONOCYTE COUNT 0.8 /CUMM (0.10-0.60); BASOPHIL % 0.2 % (0.0-2.0); EOSINOPHIL % 5.2 % (0-5); GRANULOCYTE % 68.6 % (42.2-75.2); HEMATOCRIT 36.6 % (37-47); MEAN CORPUSCULAR HGB 30.9 PG (27.0-31.0); MEAN CORPUSCULAR HGB CONC 34.1 G/DL (33.0-37.0); MEAN CORPUSCULAR VOLUME 90.4 FL (81.0-99.0); MEAN PLATELET VOLUME 9.4 FL (7.4-10.4); PLATELET COUNT 187 /CUMM (130-400); RBC DISTRIBUTION WIDTH 13.7 % (11.5-14.5); RED BLOOD CELL CT 4.05 /CUMM (4.20-5.40); WHITE BLOOD CELL COUNT 9.6 /CUMM (4.8-10.8)
[2016-09-06 05:49] VITALS: BP 116/64
--- NOTE | 2016-09-06 08:09 | RADIOLOGY REPORT ---
EXAMINATION: XR PORTABLE CHEST CLINICAL INFORMATION: Shortness of breath. COMPARISON: 09/05/2016 TECHNIQUE: Portable view of the chest was obtained. FINDINGS: The lungs are well expanded. There is no consolidation, edema, or effusion. A trace right apical pneumothorax is suspected. Pneumomediastinum with pneumopericardium once again noted. The cardiac silhouette is normal in size. No acute osseous abnormality. IMPRESSION: Trace right apical pneumothorax. Pneumomediastinum and pneumoperitoneum again noted. No consolidation.
--- NOTE | 2016-09-06 09:19 | Cons- Cardiology ---
General Information and HPI Consulting Request Date of Consult: 09/06/16 Requested By: GUILLERMO PRYOR MD Reason for Consult: Pneumomediastinum and pneumopericardium in a young female Source of Information: patient, old records Exam Limitations: no limitations History of Present Illness: The patient is a 20-year-old female with a long history of asthma. The patient was having some difficulty breathing due to her asthma yesterday while at work. Suddenly she developed anterior chest pain which was worse on inspiration and movement. She was brought to the emergency room where chest x-ray documented pneumomediastinum and pneumopericardium. There are also tiny pneumothoraces bilaterally. An EKG documented just sinus tachycardia with nonspecific T-wave changes. Labs documented elevated white count, normal chemistries, normal troponin, normal BNP. This morning the patient is more comfortable and breathing easily. She has marked mediastinal crunch (Alem's sign) on auscultation. Allergies/Medications Allergies: Coded Allergies: animal dander (HIVES, MAY TRIGGER ASTHMA 09/05/16) Home Med List: Albuterol Sulfate (Proair Hfa) 90 MCG HFA.AER.AD 2 PUF INH Q4-6 PRN PRN ASTHMA (Reported) Alprazolam (Xanax) 2 MG TABLET 1 TAB PO PRN ANXIETY (Reported) Cimetidine 400 MG TABLET 1 TAB PO DAILY HIVES (Reported) Hydroxyzine Pamoate 50 MG CAPSULE 1-2 CAP PO TID PRN HIVES (Reported) Current Medications: Current Medications Sig/Holly Start time Last Medication Dose Route Stop Time Status Admin Albuterol Sulfate 3 ML ONCE ONE 09/05 2300 DC 09/05 INH 09/05 2301 2325 Albuterol Sulfate 2 PUF Q4-6 PRN PRN 09/05 2230 AC INH Enoxaparin Sodium 40 MG DAILY 09/06 1000 AC SC Hydromorphone HCl 0 .STK-MED ONE 09/05 2341 DC .ROUTE Hydromorphone HCl 1 MG ONCE ONE 09/05 2330 DC 09/06 IV 09/05 2331 0000 Hydromorphone HCl 2 MG Q4P PRN 09/05 2230 DC IV Ipratropium [place] 2.5 ML ONCE ONE 09/05 2300 DC 09/05 INH 09/05 2301 2325 Ketorolac 0 .STK-MED ONE 09/06 0705 DC Tromethamine .ROUTE Ketorolac 30 MG Q6-PRN PRN 09/05 2245 AC 09/06 Tromethamine IV 0708 Ketorolac 0 .STK-MED ONE 09/05 2234 DC Tromethamine .ROUTE Ketorolac 0 .STK-MED ONE 09/05 1655 DC Tromethamine .ROUTE Ketorolac 30 MG ONCE ONE 09/05 1645 DC 09/05 Tromethamine IV 09/05 1646 1735 Morphine Sulfate 0 .STK-MED ONE 09/05 1919 DC .ROUTE Morphine Sulfate 2 MG ONCE ONE 09/05 1915 DC 09/05 IV 09/05 1916 1921 Oxycodone/ 0 .STK-MED ONE 09/06 0457 DC Acetaminophen PO Oxycodone/ 0 .STK-MED ONE 09/05 223 DC Acetaminophen PO Oxycodone/ 1 TAB Q6P PRN 09/05 223 AC 09/06 Acetaminophen PO 0509 Oxycodone/ 0 .STK-MED ONE 09/05 202 DC Acetaminophen PO Oxycodone/ 1 TAB ONCE ONE 09/05 2014 DC 09/05 Acetaminophen PO 09/05 Sodium Chloride 1,000 ML BOLUS ONE 09/05 1645 DC 09/05 IV 09/05 1744 1735 Review of Systems Review of Systems: She has no other complaints and the review of systems at this time. Past History Travel History Traveled to [place] past 21 day No Medical History Neurological: NONE EENT: NONE Cardiovascular: hypertension Respiratory: asthma Gastrointestinal: NONE Hepatic: NONE Renal: NONE Musculoskeletal: NONE Psychiatric: anxiety Blood Disorders: NONE Cancer(s): NONE Surgical History Surgical History: 1 Psychosocial History ETOH Use: denies use Illicit Drug Use: denies illicit drug use Exam & Diagnostic Data Vital Signs and I&O Vital Signs Date Time Temp Pulse Resp B/P Pulse O2 O2 Flow FiO2 Ox Delivery Rate 09/06 0549 96.9 88 16 116/64 98 Room Air 09/06 0053 Non ReBreather 09/05 2325 99 Non 100% ReBreather 09/05 2227 99.2 92 28 116/66 100 Non ReBreather 09/05 2019 99.5 101 16 115/66 97 Nasal 2.0L Cannula 09/05 2000 99.7 90 20 110/61 97 Nasal 2.0L Cannula 09/05 1754 99.6 100 18 132/72 100 Nasal 2.0L Cannula 09/05 1655 Nasal 2.0L Cannula 09/05 1630 118 18 129/63 97 Room Air 09/05 1540 97.1 120 16 118/74 96 Room Air Intake & Output 09/06 1600 09/06 0800 09/06 0000 09/05 1600 09/05 0800 09/05 0000 Intake Total 11 1000 Output Total Balance 11 1000 Intake, IV 11 1000 Patient 165 lb 165 lb Weight Physical Exam: The patient is in no distress HEENT exam is normal Posterior auscultation of the chest is normal Anteriorly there is a marked mediastinal crunch coincident with the cardiac cycle. Abdomen is benign Extremities good pulses, no edema Neurologic examination is intact Labs/Khang Results: Laboratory Tests 09/06 09/05 0510 1725 Chemistry Sodium (137 - 145 mmol/L) 139 138 Potassium (3.5 - 5.1 mmol/L) 3.8 4.0 Chloride (98 - 107 mmol/L) 103 99 Carbon Dioxide (22 - 30 mmol/L) 23 25 Anion Gap (5 - 16) 12 14 BUN (7 - 17 mg/dL) 10 9 Creatinine (0.5 - 1.0 mg/dL) 0.7 0.8 Estimated GFR (>60 ml/min) > 60 > 60 BUN/Creatinine Ratio (7 - 25 %) 14.3 11.3 Glucose (65 - 99 mg/dL) 96 Calcium (8.4 - 10.2 mg/dL) 9.5 Total Bilirubin (0.2 - 1.3 mg/dL) 0.6 AST (14 - 36 U/L) 21 ALT (9 - 52 U/L) 30 Alkaline Phosphatase (<127 U/L) 90 Troponin I (< 0.11 ng/ml) < 0.01 [id number] Pept (<125 pg/mL) 30.6 Total Protein (6.3 - 8.2 g/dL) 7.6 Albumin (3.5 - 5.0 g/dL) 4.3 Globulin (1.9 - 4.2 gm/dL) 3.3 Albumin/Globulin Ratio (1.1 - 2.2 %) 1.3 Total Beta HCG (NEGATIVE) NEGATIVE Hematology CBC w Diff NO MAN DIFF REQ NO MAN DIFF REQ WBC (4.8 - 10.8 /CUMM) 9.6 13.6 H RBC (4.20 - 5.40 /CUMM) 4.05 L 4.28 Hgb (12.0 - 16.0 G/DL) 12.5 13.3 Hct (37 - 47 %) 36.6 L 38.9 MCV (81.0 - 99.0 FL) 90.4 90.9 MCH (27.0 - 31.0 PG) 30.9 31.0 RDW (11.5 - 14.5 %) 13.7 13.4 Plt Count (130 - 400 /CUMM) 187 223 MPV (7.4 - 10.4 FL) 9.4 9.3 Gran % (42.2 - 75.2 %) 68.6 86.9 H Lymphocytes % (20.5 - 51.1 %) 17.9 L 6.1 L Monocytes % (1.7 - 9.3 %) 8.1 5.7 Eosinophils % (0 - 5 %) 5.2 H 1.0 Basophils % (0.0 - 2.0 %) 0.2 0.3 Absolute Granulocytes (1.4 - 6.5 /CUMM) 6.6 H 11.8 H Absolute Lymphocytes (1.2 - 3.4 /CUMM) 1.7 0.8 L Absolute Monocytes (0.10 - 0.60 /CUMM) 0.8 H 0.8 H Absolute Eosinophils (0.0 - 0.7 /CUMM) 0.5 0.1 Absolute Basophils (0.0 - 0.2 /CUMM) 0 0 PUBS MCHC (33.0 - 37.0 G/DL) 34.1 34.1 Diagnostic Data EKG Results Sinus tachycardia at a rate of 119 with nonspecific T-wave abnormalities. CXR Results PATIENT: CLIFF DYSON PRESENT AGE: 20 PATIENT ACCOUNT NO: [id number] : 93 LOCATION: [facility] ORDERING PHYSICIAN: DANAY ALVARENGA MD SERVICE DATE: 09/06/16 EXAM TYPE: RAD - XRY-PORTABLE CHEST XRAY EXAMINATION: XR PORTABLE CHEST CLINICAL INFORMATION: Shortness of breath. COMPARISON: 09/05/2016 TECHNIQUE: Portable view of the chest was obtained. FINDINGS: The lungs are well expanded. There is no consolidation, edema, or effusion. A trace right apical pneumothorax is suspected. Pneumomediastinum with pneumopericardium once again noted. The cardiac silhouette is normal in size. No acute osseous abnormality. IMPRESSION: Trace right apical pneumothorax. Pneumomediastinum and pneumoperitoneum again noted. No consolidation. DICTATED BY: NAN MANE MD DATE/TIME DICTATED:09/06/16803 BUSINESS DEVELOPMENT REPRESENTATIVE:ANNIE DATE/TIME TRANSCRIBED:09/06/16803 CONFIDENTIAL, DO NOT COPY WITHOUT APPROPRIATE AUTHORIZATION. <Electronically signed in Other Vendor System> SIGNED BY: ALHAJI KIRAN,NAN 09/06 Other Results PATIENT: CLIFF DYSON PRESENT AGE: 20 PATIENT ACCOUNT NO: [id number] : 93 LOCATION: [facility] ORDERING PHYSICIAN: AJNICE SILVERMAN SERVICE DATE: 09/05/16175 EXAM TYPE: CAT - CT CHEST WO IV CONTRAST EXAMINATION: CT CHEST WITHOUT CONTRAST CLINICAL INFORMATION: Pneumomediastinum. Concern for esophageal leak. COMPARISON: None. TECHNIQUE: Multidetector volumetric CT imaging of the chest was done. Axial MIP volume rendering provided. Sagittal and coronal reformatted images were obtained. Oral contrast given. DLP: 185.4 mGy-cm. FINDINGS: LUNGS: Lungs are clear. MEDIASTINUM: There is pneumomediastinum extending into the neck. There is pneumopericardium. There is subcutaneous emphysema in the axillary regions bilateral. Contrast within the esophagus and the stomach. No leak of the esophagus. PLEURA: Small bilateral apical pneumothorax. There is no pleural effusion. No oral contrast leaking into the pleural space. AXILLA: No lymphadenopathy. UPPER ABDOMEN: Unremarkable. OSSEOUS STRUCTURES: Unremarkable. IMPRESSION: 1. Pneumomediastinum. Pneumopericardium. Small bilateral apical pneumothorax. Subcutaneous air in the axillary areas. 2. No esophageal leak. Assessment/Plan Assessment/Plan This patient has developed pneumomediastinum and pneumopericardium secondary to asthma. She is still having some chest pain. She has a marked mediastinal crunch (Alem's sign) on examination. There is no evidence of cardiac tamponade or cardiac compromise. The treatment for this is just observation and pain management. Echocardiography will probably not be helpful in her management. Maneuvers that increase intra-pleural pressure such as Valsalva maneuver etc. should be avoided. I would repeat her electrocardiogram at this time as her heart rate has come down. The patient can be admitted to general medicine floor and followed also by thoracic surgery. Consult Acknowledgment - Thank you for your consult request. - Thank you for your consult request.
--- NOTE | 2016-09-06 10:35 | Cons- Pulmonary ---
General Information and HPI Consulting Request Date of Consult: 09/06/16 Requested By: Dr. Durbin Reason for Consult: pneumomediastinum Source of Information: patient Exam Limitations: no limitations History of Present Illness: 20-year-old woman with a history of asthma using albuterol and Flovent intermittently does not see a vocational trainer in no pulmonary function testing is on file. She presents with a prolonged history of coughing with the URI-like symptoms afebrile and without any chemistry abnormalities however white count was 13.6 on admission. Initial chest x-ray performed showed pneumomediastinum with pneumopericardium and small bilateral pneumothoraces. Chest CT was performed showing pneumomediastinum and pneumopericardium and small bilateral apical pneumothorax with subcutaneous air and axillary areas without an esophageal leak. Overnight the patient was placed on 100% nonrebreather for nitrogen washout and this morning the x-ray showed trace right apical pneumothorax with again demonstrated pneumomediastinum and pneumoperitoneum without any consolidations. She is afebrile and doing well she is satting now without oxygen 98% on room air. Her pain is still persistent but improved. There is no fevers or chills. There is no history of any pneumothoraces in the past. No sick contacts or travel history. Allergies/Medications Allergies: Coded Allergies: animal dander (HIVES, MAY TRIGGER ASTHMA 09/05/16) Home Med List: Albuterol Sulfate (Proair Hfa) 90 MCG HFA.AER.AD 2 PUF INH Q4-6 PRN PRN ASTHMA (Reported) Alprazolam (Xanax) 2 MG TABLET 1 TAB PO PRN ANXIETY (Reported) Aripiprazole (Abilify) 5 MG TABLET 1 TAB PO DAILY MENTAL HEALTH (Reported) Cimetidine 400 MG TABLET 1 TAB PO DAILY HIVES (Reported) Hydrocortisone 2.5 % CREAM..G. 1 MARY JO TOP AD PRN HIVES (Reported) apply to affected area(s) Hydroxyzine Pamoate 50 MG CAPSULE 1-2 CAP PO TID PRN HIVES (Reported) Current Medications: Current Medications Sig/Holly Start time Last Medication Dose Route Stop Time Status Admin Albuterol Sulfate 3 ML ONCE ONE 09/05 2300 DC 09/05 INH 09/05 2301 2325 Albuterol Sulfate 2 PUF Q4-6 PRN PRN 09/05 2230 AC INH Enoxaparin Sodium 40 MG DAILY 09/06 1000 AC SC Hydromorphone HCl 0 .STK-MED ONE 09/05 2341 DC .ROUTE Hydromorphone HCl 1 MG ONCE ONE 09/05 2330 DC 09/06 IV 09/05 2331 0000 Hydromorphone HCl 2 MG Q4P PRN 09/05 2230 DC IV Ipratropium [place] 2.5 ML ONCE ONE 09/05 2300 DC 09/05 INH 09/05 2301 2325 Ketorolac 0 .STK-MED ONE 09/06 0705 DC Tromethamine .ROUTE Ketorolac 30 MG Q6-PRN PRN 09/05 2245 AC 09/06 Tromethamine IV 0708 Ketorolac 0 .STK-MED ONE 09/05 2234 DC Tromethamine .ROUTE Ketorolac 0 .STK-MED ONE 09/05 1655 DC Tromethamine .ROUTE Ketorolac 30 MG ONCE ONE 09/05 1645 DC 09/05 Tromethamine IV 09/05 1646 1735 Morphine Sulfate 2 MG Q4P PRN 09/06 0930 AC IV Morphine Sulfate 0 .STK-MED ONE 09/05 1919 DC .ROUTE Morphine Sulfate 2 MG ONCE ONE 09/05 1915 DC 09/05 IV 09/05 1916 1921 Oxycodone/ 0 .STK-MED ONE 09/06 0457 DC Acetaminophen PO Oxycodone/ 0 .STK-MED ONE 09/05 2234 DC Acetaminophen PO Oxycodone/ 1 TAB Q6P PRN 09/05 2230 AC 09/06 Acetaminophen PO 0509 Oxycodone/ 0 .STK-MED ONE 09/05 202 DC Acetaminophen PO Oxycodone/ 1 TAB ONCE ONE 09/05 2014 DC 09/05 Acetaminophen PO 09/05 Sodium Chloride 1,000 ML BOLUS ONE 09/05 1645 DC 09/05 IV 09/05 1744 1735 Review of Systems Comments 18 point Review of Systems performed. Positive and negative pertinent findings are deliniated in the HPI. Otherwise the ROS is negative. Past History Travel History Traveled to [place] past 21 day No Medical History Neurological: NONE EENT: NONE Cardiovascular: hypertension Respiratory: asthma Gastrointestinal: NONE Hepatic: NONE Renal: NONE Musculoskeletal: NONE Psychiatric: anxiety Blood Disorders: NONE Cancer(s): NONE Surgical History Surgical History: 1 Family History Relations & Conditions If Any: Relation not specified for: *No pertinent family history Psychosocial History ETOH Use: denies use Illicit Drug Use: denies illicit drug use Exam & Diagnostic Data Last 24 Hrs of Vital Signs/I&O Vital Signs Date Time Temp Pulse Resp B/P Pulse O2 O2 Flow FiO2 Ox Delivery Rate 09/06 0549 96.9 88 16 116/64 98 Room Air 09/06 0053 Non ReBreather 09/05 2326 99 Non 100% ReBreather 09/05 2228 99.2 92 28 116/66 100 Non ReBreather 09/05 2020 99.5 101 16 115/66 97 Nasal 2.0L Cannula 09/05 2000 99.7 90 20 110/61 97 Nasal 2.0L Cannula 09/05 1754 99.6 100 18 132/72 100 Nasal 2.0L Cannula 09/05 1655 Nasal 2.0L Cannula 09/05 1630 118 18 129/63 97 Room Air 09/05 1540 97.1 120 16 118/74 96 Room Air Intake & Output 09/06 1600 09/06 0800 09/06 0000 Intake Total 11 1000 Output Total Balance 11 1000 Intake, IV 11 1000 Patient 165 lb Weight Physical Exam Other Physical Findings: General - Alert, awake and oriented HEENT - Minor creiptus around neck bilaterally Cardiovascular - S1, S2 Lungs - clear to auscultation bilaterally Abdomen - soft, bowel sounds positive, no tenderness Extremities - without edema or cyanosis Last 48 Hrs of Labs/Khang: Laboratory Tests 09/06/16 1010: Methadone Screen Pending, Barbiturate Screen Pending, Ur Phencyclidine Scrn Pending, Amphetamines Screen Pending, U Benzodiazepines Scrn Pending, Urine Cocaine Screen Pending, Urine Cannabis Screen Pending 09/06/16 0510: Anion Gap 12, Estimated GFR > 60, BUN/Creatinine Ratio 14.3, CBC w Diff NO MAN DIFF REQ, RBC 4.05 L, MCV 90.4, MCH 30.9, RDW 13.7, MPV 9.4, Gran % 68.6, Lymphocytes % 17.9 L, Monocytes % 8.1, Eosinophils % 5.2 H, Basophils % 0.2, Absolute Granulocytes 6.6 H, Absolute Lymphocytes 1.7, Absolute Monocytes 0.8 H, Absolute Eosinophils 0.5, Absolute Basophils 0, PUBS MCHC 34.1 09/05/16 1725: Anion Gap 14, Estimated GFR > 60, BUN/Creatinine Ratio 11.3, Glucose 96, Calcium 9.5, Total Bilirubin 0.6, AST 21, ALT 30, Alkaline Phosphatase 90, Troponin I < 0.01, Cri-O-Pwaynganesm Pept 30.6, Total Protein 7.6, Albumin 4.3, Globulin 3.3, Albumin/Globulin Ratio 1.3, Total Beta HCG NEGATIVE, CBC w Diff NO MAN DIFF REQ, RBC 4.28, MCV 90.9, MCH 31.0, RDW 13.4, MPV 9.3, Gran % 86.9 H, Lymphocytes % 6.1 L, Monocytes % 5.7, Eosinophils % 1.0, Basophils % 0.3, Absolute Granulocytes 11.8 H, Absolute Lymphocytes 0.8 L, Absolute Monocytes 0.8 H, Absolute Eosinophils 0.1, Absolute Basophils 0, PUBS MCHC 34.1 Assessment/Plan Impression/Plan: Imperssion 20-year-old woman with a history of asthma using albuterol and Flovent intermittently does not see a vocational trainer in no pulmonary function testing is on file. She presents with a prolonged history of coughing with the URI-like symptoms afebrile and without any chemistry abnormalities however white count was 13.6 on admission. Initial chest x-ray performed showed pneumomediastinum with pneumopericardium and small bilateral pneumothoraces. Chest CT was performed showing pneumomediastinum and pneumopericardium and small bilateral apical pneumothorax with subcutaneous air and axillary areas without an esophageal leak. Overnight the patient was placed on 100% nonrebreather for nitrogen washout and this morning the x-ray showed trace right apical pneumothorax with again demonstrated pneumomediastinum and pneumoperitoneum without any consolidations. She is afebrile and doing well she is satting now without oxygen 98% on room air. Her pain is still persistent but improved. There is no fevers or chills. There is no history of any pneumothoraces in the past. No sick contacts or travel history. Plan -d/c non-rebreather -pain control -repeat cxr prior to d/c -can follow with pmd/pulmonary for repat cxr within 1 week of dc -trc/nebs -would d/c on symbicort 2 puffs bid with rinsing mouth - please provide script -will need pfts as outpatient, this can be arranged if she follows with myself, otherwise please ensure patient has follow up. Thank you in allowing me to participate in the care of this patient. I will continue to follow along with the patient's progress. Please do not hesitate to call about any questions or issues. Consult Acknowledgment - Thank you for your consult request.
--- NOTE | 2016-09-06 12:22 | PN- Att Addend ---
Attending Addendum Attending Brief Note Patient seen and examined, still complains of pain in the neck and upper chest ADL. She denies any trouble breathing. She is a 20-year-old female with history significant for asthma who was admitted with some shortness of breath and chest pain and found to have pneumomediastinum, pneumothorax as well as pneumopericardium. Patient has been seen by cardiology and has been cleared to go to medicine floor. Vital Signs Date Time Temp Pulse Resp B/P Pulse O2 O2 Flow FiO2 Ox Delivery Rate 09/06 1115 99 Nasal 2.5L Cannula 09/06 0800 98 Non 100% ReBreather 09/06 0549 96.9 88 16 116/64 98 Room Air 09/06 0053 Non ReBreather 09/05 2326 99 Non 100% ReBreather 09/05 2228 99.2 92 28 116/66 100 Non ReBreather 09/05 2020 99.5 101 16 115/66 97 Nasal 2.0L Cannula 09/05 2001 99.7 90 20 110/61 97 Nasal 2.0L Cannula 09/05 1754 99.6 100 18 132/72 100 Nasal 2.0L Cannula 09/05 1655 Nasal 2.0L Cannula 09/05 1630 118 18 129/63 97 Room Air 09/05 1540 97.1 120 16 118/74 96 Room Air On exam; aox3, nad. cv; s1,s2, rrr. resp; clear. abd; soft, nt, bs+. ext; no edema. Laboratory Tests 09/06 09/06 1010 0510 Chemistry Sodium (137 - 145 mmol/L) 139 Potassium (3.5 - 5.1 mmol/L) 3.8 Chloride (98 - 107 mmol/L) 103 Carbon Dioxide (22 - 30 mmol/L) 23 Anion Gap (5 - 16) 12 BUN (7 - 17 mg/dL) 10 Creatinine (0.5 - 1.0 mg/dL) 0.7 Estimated GFR (>60 ml/min) > 60 BUN/Creatinine Ratio (7 - 25 %) 14.3 Hematology CBC w Diff NO MAN DIFF REQ WBC (4.8 - 10.8 /CUMM) 9.6 RBC (4.20 - 5.40 /CUMM) 4.05 L Hgb (12.0 - 16.0 G/DL) 12.5 Hct (37 - 47 %) 36.6 L MCV (81.0 - 99.0 FL) 90.4 MCH (27.0 - 31.0 PG) 30.9 RDW (11.5 - 14.5 %) 13.7 Plt Count (130 - 400 /CUMM) 187 MPV (7.4 - 10.4 FL) 9.4 Gran % (42.2 - 75.2 %) 68.6 Lymphocytes % (20.5 - 51.1 %) 17.9 L Monocytes % (1.7 - 9.3 %) 8.1 Eosinophils % (0 - 5 %) 5.2 H Basophils % (0.0 - 2.0 %) 0.2 Absolute Granulocytes (1.4 - 6.5 /CUMM) 6.6 H Absolute Lymphocytes (1.2 - 3.4 /CUMM) 1.7 Absolute Monocytes (0.10 - 0.60 /CUMM) 0.8 H Absolute Eosinophils (0.0 - 0.7 /CUMM) 0.5 Absolute Basophils (0.0 - 0.2 /CUMM) 0 PUBS MCHC (33.0 - 37.0 G/DL) 34.1 Toxicology Urine Opiates Screen (>2000 NG/ML) 2053.00 H Methadone Screen (>300 NG/ML) < 40 Barbiturate Screen (>200 NG/ML) < 60 Ur Phencyclidine Scrn (>25 NG/ML) < 6.00 Amphetamines Screen (>1000 NG/ML) < 100 U Benzodiazepines Scrn (>200 NG/ML) < 85 Urine Cocaine Screen (>300 NG/ML) > 1000 H Urine Cannabis Screen (>50 NG/ML) 11.40 01/03 1725 Chemistry Sodium (137 - 145 mmol/L) 138 Potassium (3.5 - 5.1 mmol/L) 4.0 Chloride (98 - 107 mmol/L) 99 Carbon Dioxide (22 - 30 mmol/L) 25 Anion Gap (5 - 16) 14 BUN (7 - 17 mg/dL) 9 Creatinine (0.5 - 1.0 mg/dL) 0.8 Estimated GFR (>60 ml/min) > 60 BUN/Creatinine Ratio (7 - 25 %) 11.3 Glucose (65 - 99 mg/dL) 96 Calcium (8.4 - 10.2 mg/dL) 9.5 Total Bilirubin (0.2 - 1.3 mg/dL) 0.6 AST (14 - 36 U/L) 21 ALT (9 - 52 U/L) 30 Alkaline Phosphatase (<127 U/L) 90 Troponin I (< 0.11 ng/ml) < 0.01 [id number] Pept (<125 pg/mL) 30.6 Total Protein (6.3 - 8.2 g/dL) 7.6 Albumin (3.5 - 5.0 g/dL) 4.3 Globulin (1.9 - 4.2 gm/dL) 3.3 Albumin/Globulin Ratio (1.1 - 2.2 %) 1.3 Total Beta HCG (NEGATIVE) NEGATIVE Hematology CBC w Diff NO MAN DIFF REQ WBC (4.8 - 10.8 /CUMM) 13.6 H RBC (4.20 - 5.40 /CUMM) 4.28 Hgb (12.0 - 16.0 G/DL) 13.3 Hct (37 - 47 %) 38.9 MCV (81.0 - 99.0 FL) 90.9 MCH (27.0 - 31.0 PG) 31.0 RDW (11.5 - 14.5 %) 13.4 Plt Count (130 - 400 /CUMM) 223 MPV (7.4 - 10.4 FL) 9.3 Gran % (42.2 - 75.2 %) 86.9 H Lymphocytes % (20.5 - 51.1 %) 6.1 L Monocytes % (1.7 - 9.3 %) 5.7 Eosinophils % (0 - 5 %) 1.0 Basophils % (0.0 - 2.0 %) 0.3 Absolute Granulocytes (1.4 - 6.5 /CUMM) 11.8 H Absolute Lymphocytes (1.2 - 3.4 /CUMM) 0.8 L Absolute Monocytes (0.10 - 0.60 /CUMM) 0.8 H Absolute Eosinophils (0.0 - 0.7 /CUMM) 0.1 Absolute Basophils (0.0 - 0.2 /CUMM) 0 PUBS MCHC (33.0 - 37.0 G/DL) 34.1 Reviewed all the imaging. A/P; 20-year-old female with history significant for asthma who was admitted with shortness of breath and some chest pain. Patient found to have a pneumomediastinum, pneumothorax and pneumopericardium. Patient has been seen by cardiology thoracic surgery, cardiology and pulmonology. Recommendations are to observe. We will try to taper oxygen. Will add Symbicort as recommended by Dr. Rabago. Currently patient's pain is managed with Toradol, morphine as well as Percocet. Will try to taper her pain regimen to oral pain medicines. Once pain control with oral regimen in the next 24 hours likely patient can be discharged home.
[2016-09-06 16:36] VITALS: BP 109/58
[2016-09-06 23:55] VITALS: BP 112/55
[2016-09-07 05:56] LABS: ABSOLUTE BASOPHIL COUNT 0 /CUMM (0.0-0.2); ABSOLUTE EOSINOPHIL COUNT 0.5 /CUMM (0.0-0.7); ABSOLUTE GRANULOCYTE CT 4.2 /CUMM (1.4-6.5); ABSOLUTE LYMPH COUNT 1.8 /CUMM (1.2-3.4); ABSOLUTE MONOCYTE COUNT 0.6 /CUMM (0.10-0.60); BASOPHIL % 0.6 % (0.0-2.0); EOSINOPHIL % 7.1 % (0-5); GRANULOCYTE % 58.2 % (42.2-75.2); HEMATOCRIT 37.2 % (37-47); MEAN CORPUSCULAR HGB CONC 33.9 G/DL (33.0-37.0); MEAN CORPUSCULAR VOLUME 91.4 FL (81.0-99.0); MEAN PLATELET VOLUME 9.5 FL (7.4-10.4); PLATELET COUNT 182 /CUMM (130-400); RBC DISTRIBUTION WIDTH 13.6 % (11.5-14.5); RED BLOOD CELL CT 4.07 /CUMM (4.20-5.40); WHITE BLOOD CELL COUNT 7.1 /CUMM (4.8-10.8)
--- NOTE | 2016-09-07 08:01 | PN- Housestaff ---
See Addendum Subjective Follow-up For: pneumomediastinum Complaints: mild chest pain Subjective: She was visited and examined this morning. Her chest pain has improved significantly. She denies any the Damian, palpitation, lightheadedness. Review of Systems Constitutional: Denies: chills, diaphoresis, fever, malaise, weakness, unexplained weight loss. EENTM: Denies: blurred vision, double vision, visual changes, eye pain, eye drainage, eye tearing, icterus, ear discharge, ear pain, ear redness, hearing changes, nasal congestion, epistaxis, nasal pain, throat pain, throat swelling, mouth pain, tooth pain. Cardiovascular: Denies: chest pain, edema, orthopena, palpitations, peripheral edema, syncope. Respiratory: Denies: cough, hemoptysis, orthopnea, short of breath, sputum production, stridor, wheezing. Objective Last 24 Hrs of Vital Signs/I&O Vital Signs Date Time Temp Pulse Resp B/P Pulse O2 O2 Flow FiO2 Ox Delivery Rate 09/07 0804 98.9 85 17 111/56 99 Room Air 09/07 0752 98.9 85 17 111/56 99 Room Air 09/07 0000 Nasal 2.0L Cannula 09/06 2355 98.9 100 18 112/55 99 Nasal 3.0L Cannula 09/06 2019 97 Nasal 2.0L Cannula 09/06 1808 101.5 09/06 1636 98.7 86 18 109/58 99 09/06 1115 99 Nasal 2.5L Cannula Intake & Output 09/07 1600 09/07 0800 09/07 0000 Intake Total 400 400 Output Total Balance 400 400 Intake, IV 0 0 Intake, Oral 400 400 Number 0 0 Bowel Movements Physical Exam General Appearance: Alert, Oriented X3, Cooperative, No Acute Distress Skin: No Rashes, No Breakdown, No Significant Lesion HEENT: Atraumatic, PERRLA, EOMI, Mucous Membr. moist/pink Cardiovascular: Regular Rate, Normal S1, Normal S2, No Murmurs, Gallops, Rubs Lungs: Clear to Auscultation, Normal Air Movement Abdomen: Soft, No Tenderness Current Medications: Current Medications Sig/Holly Start time Last Medication Dose Route Stop Time Status Admin Acetaminophen 0 .STK-MED ONE 09/06 1803 DC PO Acetaminophen 650 MG Q4P PRN 09/06 1600 AC 09/06 PO 1808 Albuterol Sulfate 3 ML ONCE ONE 09/06 1200 DC 09/06 INH 09/06 1201 1105 Albuterol Sulfate 2 PUF Q4-6 PRN PRN 09/05 2230 AC INH Alprazolam 0.5 MG DAILY PRN 09/06 1600 AC PO 09/13 1559 Enoxaparin Sodium 40 MG DAILY 09/06 1000 AC 09/06 SC 1039 Famotidine 0 .STK-MED ONE 09/06 1633 DC PO Famotidine 20 MG DAILY 09/06 1600 AC 09/06 PO 1634 Ibuprofen 400 MG Q6P PRN 09/06 1600 AC PO Ketorolac 30 MG Q6-PRN PRN 09/05 2245 DC 09/06 Tromethamine IV 0708 Morphine Sulfate 0 .STK-MED ONE 09/06 1530 DC .ROUTE Morphine Sulfate 2 MG Q4P PRN 09/06 0930 DC 09/06 IV 1537 Oxycodone/ 0 .STK-MED ONE 09/07 0749 DC Acetaminophen PO Oxycodone/ 0 .STK-MED ONE 09/06 2354 DC Acetaminophen PO Oxycodone/ 0 .STK-MED ONE 09/06 2100 DC Acetaminophen PO Oxycodone/ 1 TAB Q6P PRN 09/06 1600 AC 09/06 Acetaminophen PO 2102 Oxycodone/ 1 TAB Q6P PRN 09/05 2230 AC 09/07 Acetaminophen PO 0751 Sodium Chloride 2 SPRAY Q4P PRN 09/06 2145 AC 09/06 GERALDINE 2228 Last 24 Hrs of Lab/Khang Results Last 24 Hrs of Labs/Mics: Laboratory Tests 09/07/16 0515: Anion Gap 13, Estimated GFR > 60, BUN/Creatinine Ratio 13.8, CBC w Diff NO MAN DIFF REQ, RBC 4.07 L, MCV 91.4, MCH 31.0, RDW 13.6, MPV 9.5, Gran % 58.2, Lymphocytes % 25.7, Monocytes % 8.4, Eosinophils % 7.1 H, Basophils % 0.6, Absolute Granulocytes 4.2, Absolute Lymphocytes 1.8, Absolute Monocytes 0.6, Absolute Eosinophils 0.5, Absolute Basophils 0, PUBS MCHC 33.9 09/06/16 1010: Urine Opiates Screen 2052.00 H, Methadone Screen < 40, Barbiturate Screen < 60, Ur Phencyclidine Scrn < 6.00, Amphetamines Screen < 100, U Benzodiazepines Scrn < 85, Urine Cocaine Screen > 1000 H, Urine Cannabis Screen 11.40 Assessment/Plan Assessment: 20-year-old woman with significant past medical history of asthma was needed for May the acid no/pneumopericardium. Pertinent data Repeat chest x-ray from this morning showed much improvement of pneumomediastinum Patient latest EKG yesterday was normal and she was discharged from cardiology service Assessment and plan Pneumocardium pneumomediastinum secondary to severe asthma * Patient's is a stable enough to be discharged * Pain management prescription for 15 Percocet And referral for primary care physician Dr. Orlando Elliott and mobile home lot utility worker Carroll Rabago MD Problem List: 1. Pneumomediastinum 2. Pneumopericardium 3. Subcutaneous air 4. Tachycardia 5. Abnormal EKG Pain Ratin Pain Location: Left-sided chest pain Pain Goal: Pain 4 or less Pain Plan: Percocet Tomorrow's Labs & Rationales: Discharge today Discharge Plan Discharge Disposition: home Stable for Discharge? Yes Anticipated Discharge (Day): today
[2016-09-07 08:04] VITALS: BP 111/56
--- NOTE | 2016-09-07 08:18 | RADIOLOGY REPORT ---
EXAMINATION: XR PORTABLE CHEST CLINICAL INFORMATION: Chest pain, pneumothorax and pneumomediastinum COMPARISON: 09/06/2016 TECHNIQUE: Portable view of the chest was obtained. FINDINGS: Previously demonstrated right apical pneumothorax is no longer discretely visualized. No new consolidation bilaterally. No significant pleural effusion or overt pulmonary edema. There is redemonstrated pneumomediastinum, slightly less apparent in the upper mediastinum compared to prior. Cardiac size is within normal limits. No acute osseous findings are seen. IMPRESSION: Previous trace right apical pneumothorax is no longer visualized. Slight interval decrease in pneumomediastinum.
[2016-09-07] MEDS ORDERED: PERCOCET 5-3251 EACH PO (10:11)
--- NOTE | 2016-09-07 10:17 | Patient Discharge Instructions ---
Discharge Instructions General Discharge Information You were seen/treated for: pneumopericardium/pneumomediastinum Special Instructions: #1 please follow-up with Dr. Elliott. Primary care physician within one week #2 follow-up visits pulmonology clinic, Dr. Rabago within 1 week Diet Continue normal diet: No Recommended Diet: Regular no added salt Acute Coronary Syndrome Inclusion Criteria At DC or during hospital stay patient has or had the following: ACS DIAGNOSIS No Discharge Core Measures Meds if any: Prescribed or Continued at Discharge Meds if any: NOT Prescribed or Continued at Discharge Congestive Heart Failure Inclusion Criteria At DC or during hospital stay patient has or had the following: CHF DIAGNOSIS No Discharge Core Measures Meds if any: Prescribed or Continued at Discharge Meds if any: NOT Prescribed or Continued at Discharge Cerebrovascular accident Inclusion Criteria At DC or during hospital stay patient has or had the following: CVA/TIA Diagnosis No Discharge Core Measures Meds if any: Prescribed or Continued at Discharge Meds if any: NOT Prescribed or Continued at Discharge Venous thromboembolism Inclusion Criteria VTE Diagnosis No VTE Type NONE VTE Confirmed by (Test) NONE Discharge Core Measures - Per Current guidelines, there needs to be overlap - treatment for the first 5 days of Warfarin therapy. - If discharged on Warfarin prior to 5 days of - overlap therapy, the patient will need to be - assessed for post discharge needs including - *Post discharge parental anticoagulation - *Warfarin and/or parental anticoagulation education - *Follow up date to check INR post discharge At least 5 days overlap therapy as Inpatient No Meds if any: Prescribed or Continued at Discharge Overlap Therapy No Note: Overlap Therapy is Warfarin and Anticoagulant Meds if any: NOT Prescribed or Continued at Discharge
[2016-09-07] MEDS ORDERED: SYMBICORT 80-10.2 GM INH (10:41)
[2016-09-07] MEDS ORDERED: ABILIFY5 M1 PO (11:45)
--- NOTE | 2016-09-19 15:14 | Discharge Summary ---
Visit Information Visit Dates Admission Date: 09/05/16 Discharge Date: 09/07/16 Hospital Course Course Attending Physician: JANET GOMEZ MD Primary Care Physician: No known primary care physician Hospital Course: 20-year-old white woman with past medical history of asthma presented at the emergency room with sudden onset left-sided chest pain. She was admitted at [facility] for the new onset pneumopericardium/pneumomediastinum. Upon admission vital signs were temperature of 99.7, pulse rate 120 beats per minutes which decreased to 92 and remained stable, respiratory rate 18-28 blood pressure and oxygen saturation stable. Initial physical exam: Slightly overweight, alert and oriented 3 chest and agitated in mild distress as severe pain. Subcutaneous emphysema in upper chest and axillary area. Cardiovascular exam was regular rate and rhythm S1 and S2 no JVD abdominal soft. The remainder of the physical exam was unremarkable Labs were indicated of WBC of 13.6 with left shift but no bandemia otherwise unremarkable BMP, LFT the normal limits. Chest x-ray showed pneumomediastinum and pneumopericardium and small basilar pneumothorax. Chest CT scan with oral contrast showed pneumomediastinum and pneumopericardium and small bilateral apical thorax Patient was seen by service vehicle operator. After obtaining a history and physical exam service vehicle operator believed the pneumopericardium is most possibly occurred in the setting of acute asthma exacerbation and since patient is hemodynamically stable is no indication for further cardiovascular evaluation. Patient was seen by solo truck driver to confirm this the ovary of new onset pneumomediastinum pneumopericardium in the setting of acute asthma attack. Patient was treated for asthma exacerbation and also pain management. Serial chest x-rays was obtained. On 09/07/2016, hospital discharge today, chest x-ray reported the limited new onset apical pneumothorax is resolved. Patient was discharged home with a recommendation to follow-up with primary care physician. She was referred to [facility] primary care faculty practice. Complications: Not applicable Allergies: Coded Allergies: animal dander (HIVES, MAY TRIGGER ASTHMA 09/05/16) Disposition Summary Disposition Principal Diagnosis: Pneumopericardium and pneumomediastinum in the setting of asthma exacerbation Additional Diagnosis: Mild low potassium Discharge Disposition: home or self care Discharge Instructions General Discharge Information Code Status: Full Code Patient's Diet: Heart healthy diet Patient's Activity: As tolerated Follow-Up Instructions/Appts: [facility] primary care faculty practice Medications at Discharge Discharge Medications: Stop taking the following medications: Hydrocortisone (Hydrocortisone) 2.5 % CREAM..G. On the skin As Directed as needed for HIVES Qty = 60 Continue taking these medications: Albuterol Sulfate (Proair Hfa) 90 MCG HFA.AER.AD 2 Puff Inhale through mouth EVERY 4-6 HOURS NEEDED as needed for ASTHMA Qty = 9 Comments: NOT TAKEN IN HOSPITAL Alprazolam (Xanax) 2 MG TABLET 1 Tablet ORAL as needed for ANXIETY Comments: NOT TAKEN IN HOSPITAL Hydroxyzine Pamoate (Hydroxyzine Pamoate) 50 MG CAPSULE 1-2 Capsule ORAL THREE TIMES DAILY as needed for HIVES Qty = 100 Comments: NOT TAKEN IN HOSPITAL Cimetidine (Cimetidine) 400 MG TABLET 1 Tablet ORAL DAILY Qty = 30 Comments: NOT TAKEN IN HOSPITAL Start taking the following new medications: Oxycodone HCl/Acetaminophen (Percocet 5-325 MG Tablet) 5 MG-325 MG TABLET 1 Tablet ORAL THREE TIMES DAILY Qty = 15 No Refills Comments: Last Taken: 09/07/15 Time: 8:00 AM Budesonide/Formoterol Fumarate (Symbicort 80-4.5 Mcg Inhaler) 80 MCG-4.5 MCG/ ACTUATION HFA.AER.AD 2 Puff Inhale through mouth TWICE DAILY Qty = 10.2 No Refills Comments: NOT TAKEN IN HOSPITAL Copies To: FLASH VILLAVICENCIO MD MD Review Statement Documenting Attending: JANET GOMEZ MD
== END 2016-09-07 12:15 | DRG 143 ==
LOC: ERH 15:28 → ERHI 21:40
PROVIDERS: Internal Medicine; Physician Assistant Surgical; Student in an Organized Health Care Education/Training Program; ADMIT Internal Medicine
DX: J98.2 Interstitial emphysema (principal); J45.901 Unspecified asthma with (acute) exacerbation
CPT/HCPCS: ERO; 80307; 82436; 93005; 93010; 96361; 96374; 96375; J1650; J1885